=== PATIENT | male | born 1970 | race Caucasian/White ===

== ENCOUNTER → 2020-07-24 09:45 | Outpatient (BNV) | payer BC, OTHER, SELFPAY | PROVIDERS: PCP Internal Medicine; Visit Provider Internal Medicine Medical Oncology | DX: C83.30 Diffuse large B-cell lymphoma, unspecified site (principal) | CPT/HCPCS: 99213; 99214 ==

== ENCOUNTER 2020-08-06 08:17 | Outpatient (REF) | payer OTHER, SELFPAY ==
[2020-08-06 10:04] LABS: MANUAL DIFF FLAG NO
[2020-08-06 10:22] LABS: Basophils Percent Auto 0.4 % (0-2); Eosinophils Absolute Auto 0.1 X10*3/uL (0.0-0.4); Eosinophils Percent Auto 2.6 % (0-4); Hematocrit 43.2 % (42-52); Imm Gran Abs Auto 0.01 X10*3/uL (0.00-0.03); Imm Gran Pct Auto 0.2 % (0.0-0.4); Lymphocytes Absolute Auto 1.2 X10*3/uL (1.2-4.9); Lymphocytes Percent Auto 23.3 % (20-40); Mean Corpuscular HGB Conc 32.4 g/dl (31.0-36.0); Mean Corpuscular Hemoglobin 27.7 pg (27.0-33.0); Mean Corpuscular Volume 85.5 fL (80-98); Mean Platelet Volume 10.5 fL (9.4-12.4); Monocytes Absolute Auto 0.4 X10*3/uL (0.1-1.2); Monocytes Percent Auto 8.8 % (2-11); Neutrophils Absolute Auto 3.2 X10*3/uL (2.0-8.3); Neutrophils Percent Auto 64.7 % (45-73); Platelet Count 233 X10*3/uL (160-400); Red Blood Count 5.05 X10*6/uL (4.60-5.80); Red Cell Distribution Width 12.8 % (11.0-16.0)
[2020-08-06 10:29] LABS: Glucose Urine UA NEG (NEG); Leukocyte Esterase Urine NEG (NEG); Nitrite Urine NEG (NEG); Specific Gravity - Urine 1.025 (1.005-1.025); Urine Blood NEG (NEG); Urine Ketones NEG (NEG); Urine Protein NEG (NEG-TRACE)
[2020-08-06 10:31] LABS: Appearance Urine CLEAR; Color Urine YELLOW
[2020-08-06 10:50] LABS: Alanine Aminotransferase 22 U/L (0-40); Albumin Level 4.1 g/dL (3.5-5.0); Alkaline Phosphatase 68 U/L (39-117); Anion Gap 13 (12-20); Aspartate Amino Transferase 14 U/L (5-37); Bilirubin Total 0.8 mg/dL (0.0-1.0); Blood Urea Nitrogen 15 mg/dL (9-16); Calcium 8.8 mg/dL (8.4-10.2); Carbon Dioxide 26 mmol/L (22-29); Chloride 109 mmol/L (96-108); Cholesterol 179 mg/dL; Estimated Glomerular Filt Rate > 60; Glucose Fasting 81 mg/dL (60-99); HDL Cholesterol 40 mg/dL; LDL Cholesterol Calculated 126 mg/dl; Potassium 4.9 mmol/l (3.3-5.1); Sodium 143 mmol/L (135-145); Total Protein 6.5 g/dL (6.5-8.0); Triglycerides 65 mg/dL
[2020-08-06 11:12] LABS: Prostate Specific Antigen 0.47 ng/mL (<0.05-4.0)
== END 2020-08-06 08:18 | disposition home or self-care (01) ==
LOC: HO.LAB 08:17
PROVIDERS: PCP Internal Medicine; Visit Provider Internal Medicine
DX: Z00.00 Encounter for general adult medical examination without abnormal findings (principal); C83.32 Diffuse large B-cell lymphoma, intrathoracic lymph nodes
CPT/HCPCS: 36415; 80053; 80061; 81003; 84153; 85025

== ENCOUNTER 2021-06-28 10:23 | Emergency (ER) | payer BC, SELFPAY ==
[2021-06-28 10:49] VITALS: BP 136/97; PULSE 88; RESP 16; TEMP 36.1; O2SAT 98; BMI 28.2
--- NOTE | 2021-06-28 11:33 | ED.URI ---
HPI - URI/Sore Throat General Chief Complaint: Upper Respiratory Symptoms Stated Complaint: HEADACHE COUGH Time Seen by Provider: 06/28/21 11:10 Source: patient Mode of arrival: ambulatory Limitations: no limitations History of Present Illness HPI Narrative: 50-year-old male presents with 4 days of cough, fatigue, body aches, and gradual onset headache. Patient's has been sick, he lives with his grand children, both of whom have also been sick with the same symptoms. Patient's cough is dry, and is especially bothersome at night. He also has some nasal congestion and postnasal drip. His headache started gradually, and is located bilaterally and behind his eyes. Patient has been taking Tylenol which helps with the headache. No fevers, no stiff neck, no visual changes, no gait disturbance. No sore throat or ear pain. No vomiting or diarrhea. Patient is able to eat and drink. Patient was vaccinated for COVID in February MD elicited complaint: cough and nasal congestion Onset (ago): day(s) (4) Consistency: constant Severity: moderate Able to tolerate fluids by mouth: Yes Relieving factors: OTC cold medicine Context: sick contacts Associated symptoms: headache Related Data Home Medications Medication Instructions Recorded Confirmed omeprazole 20 mg capsule,delayed 20 mg PO DAILY 07/24/20 07/24/20 release Previous Rx's Medication Instructions Recorded albuterol sulfate 90 mcg/actuation 2 puff INHALATION Q4-6H 3 Days 06/28/21 aerosol inhaler #6.7 g benzonatate 200 mg capsule 200 mg PO TID 5 Days #15 cap 06/28/21 Allergies Allergy/AdvReac Type Severity Reaction Status Date / Time No Known Allergies Allergy Unverified 07/05/20 15:03 [No Known Allergies*] Review of Systems Constitutional: Constitutional: Reports body ache(s), Denies chills, Reports fatigue, Denies fever(s), Reports headache(s), Reports lethargy, Reports malaise and Denies weakness Eyes: Eyes: Denies blurry vision, Denies change in vision, Denies diplopia, Denies loss of vision and Denies eye pain ENT: Denies dizziness, Denies ear discharge, Denies otalgia, Reports headache(s), Denies hoarseness, Reports nasal congestion, Reports nasal discharge, Denies disequilibrium, Denies sinus pain, Denies sinus pressure and Denies sore throat Cardiovascular: Cardiovascular: Denies chest pain, Denies palpitations and Denies dyspnea Respiratory: Respiratory: Denies chest congestion, Reports cough, Denies dyspnea and Denies wheezing Gastrointestinal: Gastrointestinal: Denies abdominal pain, Denies diarrhea, Denies nausea and Denies vomiting Musculoskeletal: Musculoskeletal: Reports myalgias Integumentary/Breasts: Skin/Breast: Denies erythema and Denies rash Neurologic: Denies dizziness, Reports headache(s), Denies focal weakness, Denies loss of vision, Denies Sensory deficit (Neuro), Denies disequilibrium and Denies weakness Endocrine: Endocrine: Reports fatigue and Denies palpitations Allergic/Immunologic: Allergic/Immunologic: Denies wheezing PMFSH Past Medical History Medical History Chronic back pain DJD (degenerative joint disease), lumbar Family History Family History Mother Ovarian cancer Social History Social History Second Hand Smoke Exposure: No Advance Directives: Yes Advance Directives Information Provided: Yes Advance Directives on File: No Current occupational status: employed 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 Physical Exam Vital Signs: Vital Signs: Last Vital Signs Temp 97 F 06/28/21 10:49 Pulse 88 06/28/21 10:49 Resp 17 06/28/21 12:58 BP 136/97 H 06/28/21 10:49 Pulse Ox 98 06/28/21 10:49 Body Mass Index 28.2 Const: General: comfortable, no acute distress, well developed, alert and awake Nutritional Appearance: average body habitus Orientation/consciousness: patient oriented x3 Limitations: no limitations HENMT: Head: Yes normal to inspection, Yes normocephalic and Yes atraumatic Ears: hearing grossly normal bilaterally, external ears normal, TM's normal bilaterally and EAC's normal General nose exam: Normal external nose present, No nasal discharge present and Abnormal mucous membranes and turbinates present boggy bilateral Face and sinus: Yes normal facial exam and Yes sinuses nontender Mouth: Normal oral and palatal mucosa present, tongue normal, oropharynx normal and moist mucous membranes Throat: Yes postnasal drainage Eyes: Pupils: Equal, round and reactive pupils present EOM: EOMs intact bilaterally Neck: Neck: Yes full ROM, Yes no lymphadenopathy, Yes no meningeal signs, Yes trachea midline and Yes supple Resp: Effort & Inspection: normal respiratory effort and able to speak in complete sentences Auscultation: no crackles, no rales, no rhonchi, no wheezes and diminished lung sounds diffuse Cardio: Rate: regular rate Rhythm: regular rhythm Heart sounds: S1 normal heart sound present and S2 normal heart sound present Skin: General skin exam: no rashes or lesions noted and turgor normal Neuro: General: patient oriented x3, gait normal, tone normal, moves all extremities, no meningeal signs, no focal motor deficits and CN's II-XI intact bilaterally Cranial nerves: Yes Equal, round and reactive pupils present Sensory Exam: No Sensory deficit (Neuro) Course Course Course Narrative: 50-year-old with 4 days of dry cough, body aches, fatigue, and gradual onset headache with no red flags headache symptoms. Lungs mildly diminished, patient has postnasal drip in his posterior oropharynx. Otherwise unremarkable exam, will give ketorolac for headache, albuterol inhaler, will test for COVID and flu. Patient negative for COVID, flu, RSV, lungs are moving better air after albuterol inhaler, patient's headache has almost entirely resolved. Counseled patient to go home rest, push fluids, alternate Tylenol and ibuprofen,return to work Thursday. MDM - URI/Sore Throat Lab Data Labs: Lab Results 06/28/21 Range/Units 11:35 Coronavirus (PCR) NEGATIVE (Negative) Influenza Type A (PCR) NEGATIVE (Negative) Influenza Type B (PCR) NEGATIVE (Negative) RSV RNA Qual (PCR) NEGATIVE (Negative) Discharge Plan Discharge Clinical Impression: Upper respiratory infection Qualifiers: URI type: unspecified viral URI Qualified Code(s): J06.9 - Acute upper respiratory infection, unspecified Patient Disposition: Home, Self-Care Instructions: Upper Respiratory Infection (ED) Additional Instructions: Please push fluids, rest, alternate Tylenol and ibuprofen. Please use your albuterol inhaler 2 puffs every 4 hours for the next 3 days while you are awake. Please use the benzonatate as prescribed, they help with the dry cough. Please return to work on [employer]. Please return to the emergency room if you have worsening symptoms, fevers, or any new and concerning symptoms. Prescriptions: New albuterol sulfate 90 mcg/actuation HFA aerosol inhaler 2 puff inhalation Q4-6H 3 Days Qty: 6.7 RF: 0 benzonatate 200 mg capsule 200 mg PO TID 5 Days Qty: 15 RF: 0 No Action omeprazole [Prilosec] 20 mg Capsule,Delayed Release(Dr/Ec) 20 mg PO DAILY RF: 0 Stand Alone Forms: Work/School Release Interventions: ED Discharge Assessment Last Done: 06/28/21 13:02 Discharge Date/Time: 06/28/21 13:02
[2021-06-28] MEDS: Ketorolac Tromethamine 15 MG/ML VIAL 30 MG IM (11:43)
[2021-06-28] MEDS: Albuterol Sulfate 90 MCG 8 GM INHALER 2 PUFF INHALE (12:15)
[2021-06-28 12:42] LABS: Influenza A PCR NEGATIVE (Negative); Influenza B PCR NEGATIVE (Negative); Resp Syncy Virus RNA Qual PCR NEGATIVE (Negative); SARS COV2 PCR INHOUSE NEGATIVE (Negative)
[2021-06-28 12:58] VITALS: RESP 17
== END 2021-06-28 13:02 | disposition home or self-care (01) ==
PROVIDERS: Physician Assistant; Emergency Provider Emergency Medicine; PCP Internal Medicine
DX: J06.9 Acute upper respiratory infection, unspecified (principal); R51.9 Headache, unspecified; R05 Cough; M79.10 Myalgia, unspecified site; Z20.822 Contact with and (suspected) exposure to COVID-19; Z79.899 Other long term (current) drug therapy
CPT/HCPCS: 0241U; 36415; 94640; 96372; 99284; J1885

== ENCOUNTER 2021-08-12 10:19 | Outpatient (REF) | payer BC, SELFPAY ==
[2021-08-12 10:22] LABS: MANUAL DIFF FLAG NO
[2021-08-12 10:38] LABS: Basophils Percent Auto 0.2 % (0-2); Eosinophils Absolute Auto 0.1 X10*3/uL (0.0-0.4); Eosinophils Percent Auto 1.5 % (0-4); Hematocrit 43.8 % (42-52); Hemoglobin 14.2 g/dl (14.0-18.0); Imm Gran Abs Auto 0.01 X10*3/uL (0.00-0.03); Imm Gran Pct Auto 0.2 % (0.0-0.4); Lymphocytes Absolute Auto 1.7 X10*3/uL (1.2-4.9); Lymphocytes Percent Auto 28.4 % (20-40); Mean Corpuscular HGB Conc 32.4 g/dl (31.0-36.0); Mean Corpuscular Hemoglobin 27.4 pg (27.0-33.0); Mean Corpuscular Volume 84.6 fL (80-98); Mean Platelet Volume 10.5 fL (9.4-12.4); Monocytes Absolute Auto 0.5 X10*3/uL (0.1-1.2); Monocytes Percent Auto 8.1 % (2-11); Neutrophils Absolute Auto 3.6 X10*3/uL (2.0-8.3); Neutrophils Percent Auto 61.6 % (45-73); Platelet Count 230 X10*3/uL (160-400); Red Blood Count 5.18 X10*6/uL (4.60-5.80); White Blood Count 5.9 X10*3/uL (4.8-10.8)
[2021-08-12 10:49] LABS: Alanine Aminotransferase 22 U/L (0-40); Albumin Level 4.3 g/dL (3.5-5.0); Alkaline Phosphatase 73 U/L (39-117); Anion Gap 12 (12-20); Aspartate Amino Transferase 15 U/L (5-37); Bilirubin Total 1.1 mg/dL (0.0-1.0); Blood Urea Nitrogen 11 mg/dL (9-16); Calcium 9.1 mg/dL (8.4-10.2); Carbon Dioxide 26 mmol/L (22-29); Chloride 105 mmol/L (96-108); Cholesterol 210 mg/dL; Estimated Glomerular Filt Rate > 60; Glucose Fasting 83 mg/dL (60-99); HDL Cholesterol 41 mg/dL; LDL Cholesterol Calculated 155 mg/dl; Potassium 4.4 mmol/L (3.3-5.1); Sodium 139 mmol/L (135-145); Total Protein 6.7 g/dL (6.5-8.0); Triglycerides 74 mg/dL
[2021-08-12 10:59] LABS: Appearance Urine CLEAR; Color Urine YELLOW; Glucose Urine UA NEG (NEG); Leukocyte Esterase Urine NEG (NEG); Nitrite Urine NEG (NEG); Urine Blood NEG (NEG); Urine Ketones NEG (NEG); Urine Protein NEG (NEG-TRACE)
[2021-08-12 11:11] LABS: PSA,Total (Free>4and<10) 0.71 ng/mL (0.00-4.00)
== END 2021-08-12 10:20 | disposition home or self-care (01) ==
LOC: HO.LNP 10:19
PROVIDERS: Visit Provider Internal Medicine
DX: Z00.00 Encounter for general adult medical examination without abnormal findings (principal); C37 Malignant neoplasm of thymus; C83.32 Diffuse large B-cell lymphoma, intrathoracic lymph nodes
CPT/HCPCS: 80053; 80061; 81003; 84153; 85025

== ENCOUNTER 2022-08-14 11:56 | Outpatient (REF) | payer BC, SELFPAY ==
[2022-08-14 12:01] LABS: MANUAL DIFF FLAG NO
[2022-08-14 12:38] LABS: Basophils Percent Auto 0.4 % (0-2); Eosinophils Absolute Auto 0.1 X10*3/uL (0.0-0.4); Eosinophils Percent Auto 1.8 % (0-4); Hematocrit 47.8 % (42.0-52.0); Hemoglobin 15.2 g/dl (14.0-18.0); Imm Gran Abs Auto 0.01 X10*3/uL (0.00-0.03); Imm Gran Pct Auto 0.2 % (0.0-0.4); Lymphocytes Absolute Auto 1.5 X10*3/uL (1.2-4.9); Lymphocytes Percent Auto 27.2 % (20-40); Mean Corpuscular HGB Conc 31.8 g/dl (31.0-36.0); Mean Corpuscular Hemoglobin 27.1 pg (27.0-33.0); Mean Corpuscular Volume 85.4 fL (80.0-98.0); Mean Platelet Volume 10.6 fL (9.4-12.4); Monocytes Absolute Auto 0.5 X10*3/uL (0.1-1.2); Monocytes Percent Auto 8.9 % (2-11); Neutrophils Absolute Auto 3.3 x10*3/uL (2.0-8.3); Neutrophils Percent Auto 61.5 % (45-73); Platelet Count 213 X10*3/uL (160-400); Red Cell Distribution Width 13.3 % (11.0-16.0); White Blood Count 5.4 X10*3/uL (4.8-10.8)
[2022-08-14 12:39] LABS: Appearance Urine Clear; Color Urine Yellow; Glucose Urine UA Negative (Negative); Leukocyte Esterase Urine Negative (Negative); Nitrite Urine Negative (Negative); PH 7.5 (5.0-9.0); Urine Blood Negative (Negative); Urine Ketones Negative (Negative); Urine Protein Negative (Neg-Trace)
[2022-08-14 12:41] LABS: Bacteria Urine None Seen (None Seen); Hyaline Casts Urine 0-2 /LPF (0-2); RBC Urine 0-2 /HPF (0-2); Squamous Epithelial Cell Urine 0-2 /HPF (0-2); WBC Urine 0-5 /HPF (0-5)
[2022-08-14 12:48] LABS: Alanine Aminotransferase 21 U/L (0-40); Albumin Level 4.2 g/dL (3.5-5.0); Alkaline Phosphatase 81 U/L (39-117); Anion Gap 14 (12-20); Aspartate Amino Transferase 15 U/L (5-37); Bilirubin Total 0.7 mg/dL (0.0-1.0); Blood Urea Nitrogen 17 mg/dL (9-16); Calcium 9.1 mg/dL (8.4-10.2); Carbon Dioxide 28 mmol/L (22-29); Chloride 105 mmol/L (96-108); Cholesterol 236 mg/dL; Estimated Glomerular Filt Rate > 60; Glucose Fasting 95 mg/dL (60-99); HDL Cholesterol 48 mg/dL; LDL Cholesterol Calculated 172 mg/dl; Potassium 4.6 mmol/L (3.3-5.1); Sodium 142 mmol/L (135-145); Total Protein 6.8 g/dL (6.5-8.0); Triglycerides 81 mg/dL
[2022-08-14 13:10] LABS: PSA,Total (Free>4and<10) 0.56 ng/mL (0.00-4.00)
== END 2022-08-14 11:57 | disposition home or self-care (01) ==
LOC: HO.LNP 11:56
PROVIDERS: Visit Provider Internal Medicine
DX: Z00.00 Encounter for general adult medical examination without abnormal findings (principal); Z12.5 Encounter for screening for malignant neoplasm of prostate; C83.32 Diffuse large B-cell lymphoma, intrathoracic lymph nodes
CPT/HCPCS: 80053; 80061; 81001; 84153; 85025

== ENCOUNTER 2023-08-13 11:09 | Outpatient (REF) | payer BC, SELFPAY ==
[2023-08-13 11:13] LABS: MANUAL DIFF FLAG NO
[2023-08-13 11:28] LABS: Basophils Percent Auto 0.2 % (0-2); Eosinophils Absolute Auto 0.1 X10*3/uL (0.0-0.4); Eosinophils Percent Auto 2.3 % (0-4); Hematocrit 47.2 % (42.0-52.0); Hemoglobin 15.3 g/dl (14.0-18.0); Imm Gran Abs Auto 0.02 X10*3/uL (0.00-0.03); Imm Gran Pct Auto 0.3 % (0.0-0.4); Lymphocytes Absolute Auto 1.4 X10*3/uL (1.2-4.9); Lymphocytes Percent Auto 23.3 % (20-40); Mean Corpuscular HGB Conc 32.4 g/dl (31.0-36.0); Mean Corpuscular Hemoglobin 27.4 pg (27.0-33.0); Mean Corpuscular Volume 84.6 fL (80.0-98.0); Mean Platelet Volume 10.8 fL (9.4-12.4); Monocytes Absolute Auto 0.5 X10*3/uL (0.1-1.2); Monocytes Percent Auto 8.7 % (2-11); Neutrophils Percent Auto 65.2 % (45-73); Platelet Count 241 X10*3/uL (160-400); Red Blood Count 5.58 X10*6/uL (4.60-5.80); Red Cell Distribution Width 13.1 % (11.0-16.0); White Blood Count 6.1 X10*3/uL (4.8-10.8)
[2023-08-13 11:32] LABS: Appearance Urine Clear; Color Urine Yellow; Glucose Urine UA Negative (Negative); Leukocyte Esterase Urine Negative (Negative); Nitrite Urine Negative (Negative); PH 6.5 (5.0-9.0); Urine Blood Negative (Negative); Urine Ketones Negative (Negative); Urine Protein Negative (Neg-Trace)
[2023-08-13 11:36] LABS: Bacteria Urine None Seen (None Seen); Hyaline Casts Urine 0-2 /LPF (0-2); RBC Urine 0-2 /HPF (0-2); Squamous Epithelial Cell Urine 0-2 /HPF (0-2); WBC Urine 0-5 /HPF (0-5)
[2023-08-13 11:51] LABS: Alanine Aminotransferase 25 U/L (0-40); Alkaline Phosphatase 80 U/L (39-117); Anion Gap 11 (12-20); Aspartate Amino Transferase 13 U/L (5-37); Bilirubin Total 0.7 mg/dL (0.0-1.0); Blood Urea Nitrogen 13 mg/dL (9-16); Calcium 9.1 mg/dL (8.4-10.2); Carbon Dioxide 26 mmol/L (22-29); Chloride 108 mmol/L (96-108); Cholesterol 188 mg/dL (<200); Estimated Glomerular Filt Rate > 60; Glucose Fasting 95 mg/dL (60-99); HDL Cholesterol 37 mg/dL (>40); LDL Cholesterol Calculated 134 mg/dL (<100); Potassium 4.2 mmol/L (3.3-5.1); Sodium 141 mmol/L (135-145); Total Protein 6.9 g/dL (6.5-8.0); Triglycerides 86 mg/dL (<150)
[2023-08-13 12:07] LABS: PSA,Total (Free>4and<10) 0.72 ng/mL (0.00-4.00)
== END 2023-08-13 11:10 | disposition home or self-care (01) ==
LOC: HO.LNP 11:09
PROVIDERS: Visit Provider Internal Medicine
DX: Z00.00 Encounter for general adult medical examination without abnormal findings (principal); Z12.5 Encounter for screening for malignant neoplasm of prostate; C83.32 Diffuse large B-cell lymphoma, intrathoracic lymph nodes; E78.00 Pure hypercholesterolemia, unspecified
CPT/HCPCS: 80053; 80061; 81001; 84153; 85025

== ENCOUNTER → 2023-08-27 10:26 | Outpatient (REF) | payer BC, SELFPAY ==
--- NOTE | ~2023-08-27 | NM_ITS ---
EXAMINATION: NM BONE SCAN OF THE WHOLE BODY CLINICAL INFORMATION: History of B cell lymphoma. Lumbar pain. COMPARISON: No existing relevant imaging study available. TECHNIQUE: Multiple gamma scintillation camera images of the whole body were performed 3 hours following the intravenous administration of 35 mCi Tc-99m MDP. The radiotracer was injected through right antecubital superficial vein without complications. FINDINGS: In the head, unremarkable. In the thoracic cage and upper extremities, no suspicious focal abnormality. In the spine, mild upper thoracic levoscoliosis is present. In the pelvis, no suspicious focal lesion. In the lower extremities, mildly increased periarticular radiotracer activity seen bilaterally likely represent posttraumatic and/or arthritic changes. No other definite bony abnormalities are noted. The urinary bladder and faint visualization of both kidneys are noted. NM/NM bone scan whole body IMPRESSION: No suspicious focal osseous disease. Specifically, the etiology for back pain is not evident on these images. Alternative imaging modality including MRI of the lumbosacral spine as well as whole-body FDG PET CT scan especially given the history of lymphoma as clinically appropriate may be considered for further clarification.
== END ==
LOC: HO.NUCMED 10:26
PROVIDERS: PCP Internal Medicine; Visit Provider Internal Medicine
DX: C83.32 Diffuse large B-cell lymphoma, intrathoracic lymph nodes (principal); M54.50 Low back pain, unspecified
CPT/HCPCS: 78306; A9503

== ENCOUNTER 2024-02-06 03:54 | Emergency (ER) | payer BC, SELFPAY ==
--- NOTE | ~2024-02-06 | US_ITS ---
EXAMINATION: US VENOUS ULTRASOUND WITH DOPPLER LOWER EXTREMITY, LEFT CLINICAL INFORMATION: Pain COMPARISON: None available. TECHNIQUE: Ultrasound of the deep veins is performed from the hip to the calf with compression sonography and color and pulse Doppler assessment. Spectral analysis with color-flow imaging is performed. FINDINGS: There is normal venous compression and respiratory variation and augmented flow. The visualized common femoral vein, superficial femoral vein, profunda femoral vein, popliteal vein, and the trifurcation region shows no evidence of deep venous thrombosis. Peroneal vein was not visualized. There is no significant popliteal fossa cyst. There is a subcutaneous edema around the left ankle. If the patient's symptoms persist, followup ultrasound in 5 days 7 days might be of value to exclude proximal propagation from a non-visualized calf vein. US/US venous duplex LE LT IMPRESSION: 1. No DVT demonstrated in the left lower extremity. 2. There is subcutaneous edema around the left ankle. 3. Limitation of the study, peroneal vein was not visualized.
--- NOTE | ~2024-02-06 | CT_ITS ---
EXAMINATION: CT foot LT w IV con CLINICAL INFORMATION: Rule out osteomyelitis. COMPARISON: X-ray same day earlier. TECHNIQUE: TECHNIQUE: Noncontrast CT scan, department standard protocol. FINDINGS: Bones: There is no CT evidence of fracture. Bone alignments are satisfactory. There is no CT evidence of bone destruction to suggest osteomyelitis. Soft tissue swelling dorsal to the distal phalanx of the great toe does not seem to involve the cortex of the distal phalanx. Joints: Ankle joint is intact. Subtalar joint, intertarsal, tarsometatarsal joints and interphalangeal joints are intact. Surrounding soft tissue: As previously described there is extensive soft tissue swelling on the dorsal aspect of the great toe, no CT evidence of subcutaneous abscess CT/CT foot LT w IV con IMPRESSION: 1. Soft tissue swelling dorsal to the distal phalanx of the great toe, no CT evidence of subcutaneous abscess. 2. No CT evidence of osteomyelitis. There is high index of suspicion MRI could be utilized.
--- NOTE | ~2024-02-06 | XR_ITS ---
EXAMINATION: XR KNEE, LEFT CLINICAL INFORMATION: Pain COMPARISON: None available. TECHNIQUE: Four views of the left knee. FINDINGS: No fracture, there is a small knee joint effusion.. Alignment is anatomic. Joint spaces are maintained. No abnormal soft tissue calcification. XR/XR knee LT 4V IMPRESSION: No fracture or dislocation. There is knee joint effusion.
--- NOTE | ~2024-02-06 | XR_ITS ---
EXAMINATION: XR FOOT, LEFT CLINICAL INFORMATION: Infected great toenail COMPARISON: None available. TECHNIQUE: AP, lateral, and oblique views of the left foot. FINDINGS: Subtle radiolucency in the head of the distal phalanx great toe raise concern for possible early developing osteomyelitis. This can be confirmed by MRI if clinically indicated. There is soft tissue swelling. XR/XR foot LT min 3V IMPRESSION: 1. Subtle radiolucency in the head of the distal phalanx great toe raise concern for possible early developing osteomyelitis. This can be confirmed by MRI if clinically indicated. 2. Soft tissue swelling.
[2024-02-06 03:55] VITALS: BP 175/97; PULSE 85; RESP 18; TEMP 36.8; O2SAT 98; BMI 26.3
[2024-02-06 05:05] VITALS: BP 136/92; PULSE 78; RESP 17; O2SAT 98
--- NOTE | 2024-02-06 06:54 | PC.NURSE ---
Report to [facility] for continued care.
--- NOTE | 2024-02-06 07:05 | ED_ITS ---
HPI - Extremity Injury (Lower) General Chief Complaint: Extremity Injury, Lower Stated Complaint: L Leg pain/No Inj Time Seen by Provider: 02/06/24 06:35 Source: patient, RN notes reviewed and old records reviewed Mode of arrival: ambulatory Limitations: no limitations History of Present Illness HPI Narrative: 53 year old male with no significant pmhx presents to the ED today for evaluation of atraumatic left lower extremity pain x1 month. Admits pain extends from his left anterior left knee, down his posterior left lower leg. Endorses calf tenderness, exacerbated with bending his left knee. States that is is becoming increasingly more difficulty to walk due to the pain. Denies injury or trauma. Denies recent travel or long car rides. States that he has been wearing tight socks that come up to approximately calf height. He just recently purchased compression socks which he has been wearing for 1 week now. He endorses some improvement in discomfort with compression socks. No hx of VTE. Not on anticoagulation. Additionally endorses discoloration to his left great toe nail since September. Denies injury or trauma to the toe. Denies IVDU. Denies hx of diabetes. Denies fevers, chills, chest pain, cough, shortness of breath, dyspnea, wheezing, hemoptysis, myalgias. Related Data Home Medications ?Medication ?Instructions ?Recorded ?Confirmed omeprazole 20 mg capsule,delayed 20 mg PO DAILY 07/24/20 02/20/23 release Previous Rx's ?Medication ?Instructions ?Recorded terbinafine HCl 250 mg tablet 250 mg PO DAILY 4 weeks #28 tabs 02/06/24 Allergies Allergy/AdvReac Type Severity Reaction Status Date / Time No Known Allergies Allergy Verified 02/06/24 03:59 [No Known Allergies*] Review of Systems 2 Review of Systems: Constitutional: No fever, chills, fatigue, night sweats, weight changes ENT/Mouth: No ear pain, hearing loss, nasal congestion, sinus pain, rhinorrhea, sore throat Eyes: No eye pain, swelling, redness, vision changes, discharge Cardio: No chest pain, palpitations, [place], orthopnea, peripheral edema Pulm: No SOB, cough, sputum, wheezing, dyspnea, hemoptysis GI: No nausea, vomiting, hematemesis, abdominal pain, diarrhea, constipation, hematochezia, melena : No irregular bleeding, dysuria, frequency, urgency, hesitancy, hematuria, flank pain, urinary flow changes, urinary incontinence or retention MSK: No back pain, neck pain, joint pain, myalgias, + left lower leg pain Skin: No lesions, rashes Neuro: No weakness, numbness, paresthesias, LOC, dizziness, headache Psych: No anxiety/panic, depression, SI/HI, AH/VH All other systems reviewed and are negative. [facility] Past Medical History Attestation statement: The following information was validated with the patient. Source: old records reviewed and nursing notes reviewed Medical History DJD (degenerative joint disease), lumbar Chronic back pain Family History Family History Mother Ovarian cancer Social History Social History Household Members: Significant Other and Children Housing: Apartment Are you a primary career services coordinator to a significant other at home: No Do you presently have visiting nurse or other home services: No Patient Tobacco Use Status: Never used Tobacco Smoked in Last 30 Days: No Second Hand Smoke Exposure: No Use of substances other than those prescribed or required for medical reasons: No Advance Directives: No Advance Directives Information Provided: Yes service: No Current occupational status: employed 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 Physical Exam 2 Vital Signs: Vital Signs: Last Vital Signs Temp 98.4 F 02/06/24 12:34 Pulse 71 02/06/24 12:34 Resp 16 02/06/24 12:34 BP 135/70 02/06/24 12:34 Pulse Ox 99 02/06/24 12:34 O2 Del Method Room Air 02/06/24 12:34 BMI result Body Mass Index 26.3 Vital signs stable, afebrile. Slightly hypertensive Const: General: cooperative, healthy appearing, comfortable and no acute distress Orientation/consciousness: patient oriented x3 Limitations: no limitations HEENT: Head: Yes normal to inspection, Yes No palpable skull fracture present, Yes normocephalic and Yes atraumatic Eyes: General: appearance normal, both eyes and all related structures C onjunctivae: conjunctivae normal Sclerae: sclerae normal Pupils: Equal, round and reactive pupils present Neck: Neck: Yes normal visual inspection, Yes full ROM, Yes no lymphadenopathy and Yes no JVD Resp: Effort & Inspection: normal respiratory effort and able to speak in complete sentences Auscultation: clear to auscultation bilaterally and no crackles Cardio: Jugular venous distension: no JVD Rate: regular rate Rhythm: r egular rhythm Skin: General skin exam: no rashes or lesions noted Neuro: General: patient oriented x3, gait normal and tone normal Cranial nerves: Yes Equal, round and reactive pupils present Extrem: Other: + no pitting edema of the left lower ext remity. No overlying skin changes or obvious deformity. Full ROM to left hip, knee, ankle, toes intact. Strength intact. Calf pain elicited with flexion of left knee. No tenderness to palpation of left calf. 2+ PT/DP pulses. Ambulating with steady gait. + brown discoloration to left great toen ail. no extending erythema or warmth to left great toe. full rom intact to toe. Course Course Course Narrative: 931-- CBC without leukocytosis or left shift. No anemia. H&H stable. Chemistry without acute electrolyte abnormality requiring intervention. BNP WNL at 12 > unlikely CHF. X-ray of left knee does not demonstrate acute fracture or dislocation however does show a small knee joint effusion. X-ray of left foot demonstrates soft tis CT left foot does not show evidence of osteomyelitis evelia swelling along with subtle radiolucency at the head of the distal phalanx of great toe raising concern for possible early developing osteomyelitis > CT ordered for further evaluation. Venous duplex does not demonstrate DVT within the left lower extremity. There is subcutaneous edema around the left ankle, correlating with x-ray findings. 1220-- CTA of left foot does not show evidence of osteomyelitis. Recommending MRI if high clinical suspicion for infection. Presentation consistent with onychomycosis. Low suspicion for osteo at this time. discussed work up results with patient. Terbinafine sent to pharmacy for suspected fungal infection of left great toe. advised patient to continue wearing compression socks and to elevated LEs to help with swelling. Patient has remained stable throughout ED visit today. Discussed worrisome signs and symptoms and when to return to the ED. All questions answered at this time. Patient is agreeable with disposition and stable for discharge. Medications Administered Discontinued Medications Generic Name Dose Route Start Last Admin Trade Name Shai PRN Reason Stop Dose Admin Iohexol 85 ml 02/06/24 10:27 02/06/24 10:38 Iohexol 350 Mg/Ml 100 Ml Infus..Btl IV 02/06/24 10:28 85 ml ONCE ONE Administration Ketorolac Tromethamine 30 mg 02/06/24 07:36 02/06/24 07:40 Ketorolac Tromethamine 30 Mg/Ml Vial IM 02/06/24 07:37 30 mg ONCE ONE Administration Medical Decision Making Medical Decision Making [facility] Narrative: 53 year old male with no significant pmhx presents to the ED today for evaluation of atraumatic left lower extremity pain x1 month. Vital signs stable. Slightly hypertensive to 156/88. Afebrile. Nontoxic appearing and in no acute distress. On exam, no pitting edema of the left lower extremity. No overlying skin changes or obvious deformity. Full ROM to left hip, knee, ankle, toes intact. Strength intact. Calf pain elicited with flexion of left knee. No tenderness to palpation of left calf. 2+ PT/DP pulses. Ambulating with steady gait. obvious fungal infection to left great toenail. no extending erythema or warmth to left great toe. Lungs are CTA bilaterally. No crackles. RRR. No JVD. Differential diagnosis includes monsalve cyst, DVT, contusion, ligament/tendon injury, fracture, onychomycosis, CHF, leg edema, venous insufficiency. Low suspicion for osteo, neurovascular compromise, compartment syndrome, threat to limb. Plan for labs, with duplex and x-rays. Differential Diagnosis Differential Diagnoses: The differential diagnosis associated with the presentation includes as above. Admission/Observation Not indicated Lab Data [facility] Lab Attestation statement: I reviewed the patient's lab results. As above 02/06/24 07:49 02/06/24 07:49 Labs: Lab Results 02/06/24 Range/Units 07:49 WBC 5.8 (4.8-10.8) X10*3/uL RBC 5.70 (4.60-5.80) X10*6/uL Hgb 15.5 (14.0-18.0) g/dl Hct 47.3 (42.0-52.0) % MCV 83.0 (80.0-98.0) fL MCH 27.2 (27.0-33.0) pg MCHC 32.8 (31.0-36.0) g/dl RDW 13.1 (11.0-16.0) % Plt Count 216 (160-400) X10*3/uL MPV 9.9 (9.4-12.4) fL Immature Gran % (Auto) 0.2 (0.0-0.4) % Neut % (Auto) 68.0 (45-73) % Lymph % (Auto) 22.4 (20-40) % [place] % (Auto) 7.5 (2-11) % Eos % (Auto) 1.6 (0-4) % Baso % (Auto) 0.3 (0-2) % Lymph # (Auto) 1.3 (1.2-4.9) X10*3/uL [place] # (Auto) 0.4 (0.1-1.2) X10*3/uL Eos # (Auto) 0.1 (0.0-0.4) X10*3/uL Baso # (Auto) 0.0 (0.0-0.2) X10*3/uL Abs Immat Gran (auto) 0.01 (0.00-0.03) X10*3/uL Absolute Neuts (auto) 3.9 (2.0-8.3) x10*3/uL Absolute Nucleated RBC 0.000 (0.0-0.012) X10*3/uL Nucleated RBC % (auto) 0.0 (0.0-0.2) /100WBC Sodium 140 (135-145) mmol/L Potassium 4.5 (3.3-5.1) mmol/L Chloride 107 (96-108) mmol/L Carbon Dioxide 28 (22-29) mmol/L Anion Gap 10 L (12-20) BUN 12 (9-16) mg/dL Creatinine 0.72 (0.5-1.4) mg/dL Estim Creat Clear Calc 136.3 Estimated GFR > 60 Random Glucose 94 (60-115) mg/dL Calcium 9.1 (8.4-10.2) mg/dL Magnesium 2.2 (1.6-2.6) mg/dL Total Bilirubin 0.7 (0.0-1.0) mg/dL AST 13 (5-37) U/L ALT 26 (0-40) U/L Alkaline Phosphatase 78 (39-117) U/L Total Creatine Kinase 94 (38-174) U/L B-Natriuretic Peptide 12 (<100) pg/mL Total Protein 6.9 (6.5-8.0) g/dL Albumin 4.0 (3.5-5.0) g/dL Independent Interpretation I performed an independent interpretation of an: Plain X-Ray and Ultrasound Interpretation: X-ray left foot without acute fracture, agree with radiologist's interpretation. Venous duplex of left lower extremity does not exhibit acute clot. Agree with radiologist's interpretation. CT scan of left foot without evidence of osteomyelitis, agree with radiologist's interpretation. Radiology Impression Discussion of test interpretation with radiology: I have reviewed the radiologist's reading. Radiologist Impression: EXAMINATION: XR FOOT, LEFT CLINICAL INFORMATION: Infected great toenail COMPARISON: None available. TECHNIQUE: AP, lateral, and oblique views of the left foot. FINDINGS: Subtle radiolucency in the head of the distal phalanx great toe raise concern for possible early developing osteomyelitis. This can be confirmed by MRI if clinically indicated. There is soft tissue swelling. XR/XR foot LT min 3V IMPRESSION: 1. Subtle radiolucency in the head of the distal phalanx great toe raise concern for possible early developing osteomyelitis. This can be confirmed by MRI if clinically indicated. 2. Soft tissue swelling. EXAMINATION: XR KNEE, LEFT CLINICAL INFORMATION: Pain COMPARISON: None available. TECHNIQUE: Four views of the left knee. FINDINGS: No fracture, there is a small knee joint effusion.. Alignment is anatomic. Joint spaces are maintained. No abnormal soft tissue calcification. XR/XR knee LT 4V IMPRESSION: No fracture or dislocation. There is knee joint effusion. EXAMINATION: US VENOUS ULTRASOUND WITH DOPPLER LOWER EXTREMITY, LEFT CLINICAL INFORMATION: Pain COMPARISON: None available. TECHNIQUE: Ultrasound of the deep veins is performed from the hip to the calf with compression sonography and color and pulse Doppler assessment. Spectral analysis with color-flow imaging is performed. FINDINGS: There is normal venous compression and respiratory variation and augmented flow. The visualized common femoral vein, superficial femoral vein, profunda femoral vein, popliteal vein, and the trifurcation region shows no evidence of deep venous thrombosis. Peroneal vein was not visualized. There is no significant popliteal fossa cyst. There is a subcutaneous edema around the left ankle. If the patient's symptoms persist, followup ultrasound in 5 days 7 days might be of value to exclude proximal propagation from a non-visualized calf vein. US/US venous duplex LE LT IMPRESSION: 1. No DVT demonstrated in the left lower extremity. 2. There is subcutaneous edema around the left ankle. 3. Limitation of the study, peroneal vein was not visualized. EXAMINATION: CT foot LT w IV con CLINICAL INFORMATION: Rule out osteomyelitis. COMPARISON: X-ray same day earlier. TECHNIQUE: TECHNIQUE: Noncontrast CT scan, department standard protocol. FINDINGS: Bones: There is no CT evidence of fracture. Bone alignments are satisfactory. There is no CT evidence of bone destruction to suggest osteomyelitis. Soft tissue swelling dorsal to the distal phalanx of the great toe does not seem to involve the cortex of the distal phalanx. Joints: Ankle joint is intact. Subtalar joint, intertarsal, tarsometatarsal joints and interphalangeal joints are intact. Surrounding soft tissue: As previously described there is extensive soft tissue swelling on the dorsal aspect of the great toe, no CT evidence of subcutaneous abscess CT/CT foot LT w IV con IMPRESSION: 1. Soft tissue swelling dorsal to the distal phalanx of the great toe, no CT evidence of subcutaneous abscess. 2. No CT evidence of osteomyelitis. There is high index of suspicion MRI could be utilized. External Record Review External record reviewed: Inpatient record Prescription Management I considered prescription management with: Other (Terbinafine) Social Determinants Patient?s care significantly limited by Social Determinants of Health including: Other Social Determinant of Health Critical Care Time Critical Care Time Critical Care Time: Yes Total Critical Care Time: 45 Attestation: Critical care time in the amount of 45 minutes has been provided to the patient in terms of direct patient care, frequent reevaluation, review and interpretation of medical data and results, and management of potentially life- threatening conditions. This is all outside of any medical procedures. Discharge Plan Discharge Clinical Impression: Onychomycosis of left great toe, Leg edema, left Patient Disposition: Home, Self-Care Additional Instructions: Your labs today are reassuring. The x-ray of your knee shows a small joint effusion without fracture or dislocation. The x-ray of your left foot showed question of infection within the bone. CT was then ordered. The CT of your left foot does not demonstrate infection within the bone. You likely have a fungal infection of your left great toenail. Treatment for this is with oral antifungals. Oral terbinafine has been sent to your pharmacy. Take this daily for the next 4 weeks. Please follow-up with your PCP regarding this medication. Additionally make sure you are wearing compression socks daily to help with any swelling within your legs. Elevate your legs above your heart your resting at home. Return with new or worsening symptoms. In the case of an emergency call 911. Prescriptions: New terbinafine HCl 250 mg tablet 250 mg PO DAILY 28 Days Qty: 28 0RF No Action omeprazole [Prilosec] 20 mg Capsule,Delayed Release(Dr/Ec) 20 mg PO DAILY Referrals: Santosh Lofton MD [Primary Care Provider] - Stand Alone Forms: Work/School Release Interventions: ED Discharge Assessment Last Done: 02/06/24 12:34 Discharge Date/Time: 02/06/24 12:35 Print Language: Mohawk
--- NOTE | 2024-02-06 07:12 | PC.NURSE ---
Pt coming from home, reports left lower leg pain and swelling X1.5 months from knee to ankle area. Pt reports increased pain with walking or bending his leg. Big toe nail on left foot noted to be black which pts also reports has been ongoing for approx 1 month. Swelling and slight redness noted to left leg. Pt alert and oriented, breathing even and unlabored, skin WNL. VSS. Pt reports pain 9/10.
[2024-02-06 07:29] VITALS: BP 156/88; PULSE 78; RESP 18; TEMP 36.6; O2SAT 100
[2024-02-06] MEDS: Ketorolac Tromethamine 30 MG/ML VIAL IM (07:40)
[2024-02-06 07:54] LABS: MANUAL DIFF FLAG NO
[2024-02-06 07:59] LABS: Basophils Percent Auto 0.3 % (0-2); Eosinophils Absolute Auto 0.1 X10*3/uL (0.0-0.4); Eosinophils Percent Auto 1.6 % (0-4); Hematocrit 47.3 % (42.0-52.0); Hemoglobin 15.5 g/dl (14.0-18.0); Imm Gran Abs Auto 0.01 X10*3/uL (0.00-0.03); Imm Gran Pct Auto 0.2 % (0.0-0.4); Lymphocytes Absolute Auto 1.3 X10*3/uL (1.2-4.9); Lymphocytes Percent Auto 22.4 % (20-40); Mean Corpuscular HGB Conc 32.8 g/dl (31.0-36.0); Mean Corpuscular Hemoglobin 27.2 pg (27.0-33.0); Mean Platelet Volume 9.9 fL (9.4-12.4); Monocytes Absolute Auto 0.4 X10*3/uL (0.1-1.2); Monocytes Percent Auto 7.5 % (2-11); Neutrophils Absolute Auto 3.9 x10*3/uL (2.0-8.3); Platelet Count 216 X10*3/uL (160-400); Red Cell Distribution Width 13.1 % (11.0-16.0); White Blood Count 5.8 X10*3/uL (4.8-10.8)
[2024-02-06 08:21] LABS: B Type Natriuretic Peptide 12 pg/mL (<100)
[2024-02-06 10:15] LABS: Anion Gap 10 (12-20); Bilirubin Total 0.7 mg/dL (0.0-1.0); Blood Urea Nitrogen 12 mg/dL (9-16); Calcium 9.1 mg/dL (8.4-10.2); Carbon Dioxide 28 mmol/L (22-29); Chloride 107 mmol/L (96-108); Creatinine Clr Calc Pharmacy 136.3; Estimated Glomerular Filt Rate > 60; Glucose Random 94 mg/dL (60-115); Magnesium 2.2 mg/dL (1.6-2.6); Potassium 4.5 mmol/L (3.3-5.1); Sodium 140 mmol/L (135-145)
[2024-02-06 10:16] LABS: Alanine Aminotransferase 26 U/L (0-40); Alkaline Phosphatase 78 U/L (39-117); Aspartate Amino Transferase 13 U/L (5-37)
[2024-02-06 10:35] LABS: Total Protein 6.9 g/dL (6.5-8.0)
[2024-02-06] MEDS: iohexoL 350 MG/ML 100 ML INFUS..BTL 85 ML IV (10:38)
[2024-02-06 11:30] VITALS: BP 145/80; PULSE 74; RESP 16; TEMP 36.2; O2SAT 98
[2024-02-06 12:34] VITALS: BP 135/70; PULSE 71; RESP 16; TEMP 36.9; O2SAT 99
== END 2024-02-06 12:35 | disposition home or self-care (01) ==
PROVIDERS: Physician Assistant Medical; Emergency Provider Emergency Medicine; PCP Internal Medicine
DX: B35.1 Tinea unguium (principal); R60.0 Localized edema; M25.462 Effusion, left knee; M79.662 Pain in left lower leg
CPT/HCPCS: 36415; 73564; 73630; 73701; 80053; 82550; 83735; 83880; 85025; 93971; 96372; 99284; J1885; Q9967

== ENCOUNTER 2024-10-25 10:59 | Outpatient (REF) | payer BC, SELFPAY ==
[2024-10-25 11:01] LABS: MANUAL DIFF FLAG NO
[2024-10-25 11:10] LABS: Basophils Percent Auto 0.5 % (0-2); Eosinophils Absolute Auto 0.1 X10*3/uL (0.0-0.4); Eosinophils Percent Auto 1.9 % (0-4); Hematocrit 49.7 % (42.0-52.0); Hemoglobin 16.2 g/dl (14.0-18.0); Imm Gran Abs Auto 0.01 X10*3/uL (0.00-0.03); Imm Gran Pct Auto 0.2 % (0.0-0.4); Lymphocytes Absolute Auto 1.4 X10*3/uL (1.2-4.9); Lymphocytes Percent Auto 24.9 % (20-40); Mean Corpuscular HGB Conc 32.6 g/dl (31.0-36.0); Mean Corpuscular Hemoglobin 27.3 pg (27.0-33.0); Mean Corpuscular Volume 83.8 fL (80.0-98.0); Mean Platelet Volume 10.5 fL (9.4-12.4); Monocytes Absolute Auto 0.6 X10*3/uL (0.1-1.2); Monocytes Percent Auto 9.8 % (2-11); Neutrophils Absolute Auto 3.6 x10*3/uL (2.0-8.3); Neutrophils Percent Auto 62.7 % (45-73); Platelet Count 211 X10*3/uL (160-400); Red Blood Count 5.93 X10*6/uL (4.60-5.80); Red Cell Distribution Width 13.2 % (11.0-16.0); White Blood Count 5.7 X10*3/uL (4.8-10.8)
[2024-10-25 11:11] LABS: Appearance Urine Clear; Color Urine Yellow; Glucose Urine UA Negative (Negative); Leukocyte Esterase Urine Negative (Negative); Nitrite Urine Negative (Negative); PH 6.5 (5.0-9.0); Specific Gravity - Urine >= 1.030 (1.005-1.025); Urine Blood Negative (Negative); Urine Ketones Negative (Negative); Urine Protein Negative (Neg-Trace)
[2024-10-25 11:15] LABS: Bacteria Urine None Seen (None Seen); Hyaline Casts Urine 0-2 /LPF (0-2); RBC Urine 0-2 /HPF (0-2); Squamous Epithelial Cell Urine 0-2 /HPF (0-2); WBC Urine 0-5 /HPF (0-5)
[2024-10-25 11:45] LABS: Alanine Aminotransferase 32 U/L (0-40); Albumin Level 4.2 g/dL (3.5-5.0); Alkaline Phosphatase 79 U/L (39-117); Anion Gap 9 (12-20); Aspartate Amino Transferase 21 U/L (5-37); Bilirubin Total 1.1 mg/dL (0.0-1.0); Blood Urea Nitrogen 10 mg/dL (9-16); Calcium 9.1 mg/dL (8.4-10.2); Carbon Dioxide 27 mmol/L (22-29); Chloride 109 mmol/L (96-108); Cholesterol 223 mg/dL (<200); Estimated Glomerular Filt Rate > 60; Glucose Fasting 82 mg/dL (60-99); HDL Cholesterol 44 mg/dL (>40); LDL Cholesterol Calculated 157 mg/dL (<100); Potassium 4.1 mmol/L (3.3-5.1); Sodium 141 mmol/L (135-145); Total Protein 7.2 g/dL (6.5-8.0); Triglycerides 111 mg/dL (<150)
[2024-10-25 12:00] LABS: PSA,Total (Free>4and<10) 0.65 ng/mL (0.00-4.00)
--- OUTSIDE RECORDS SUMMARY | 2024-10-25 12:22 | XMS_ITS ---
Author Organization Santosh Lofton MD Address [address] [place], [place] [id number] Care Team Providers Care Maritime Officer Name Role Phone Santosh Lofton Primary Care Provider RESULTS Component Value Reference Range Notes Complete Blood Count Auto Di ff (Not yet reviewed by provider) Interpretation: Performing Lab:[facility], [address] [place] [id number] Notes/Report: White Blood Count 5.7 4.8-10.8 X10*3/uL Red Blood Count 5.93 4.60-5.80 X10*6/uL Hemoglobin 16.2 14.0-18.0 g/dl Hematocrit 49.7 42.0-52.0 % Mean Corpuscular Volume 83.8 80.0-98.0 fL Mean Corpuscular Hemoglobin 27.3 27.0-33.0 pg Mean Corpuscular HGB Conc 32.6 31.0-36.0 g/dl Red Cell Distribution Width 13.2 11.0-16.0 % Platelet Count 211 160-400 X10*3/uL Mean Platelet Volume 10.5 9.4-12.4 fL Neutrophils Percent Auto 62.7 45-73 % Imm Gran Pct Auto 0.2 0.0-0.4 % Lymphocytes Percent Auto 24.9 20-40 % Monocytes Percent Auto 9.8 2-11 % Eosinophils Percent Auto 1.9 0-4 % Basophils Percent Auto 0.5 0-2 % NRBC Pct Auto 0.0 0.0-0.2 /100WBC Neutrophils Absolute Auto 3.6 2.0-8.3 x10*3/u L Imm Gran Abs Auto 0.01 0.00-0.03 X10*3/uL Lymphocytes Absolute Auto 1.4 1.2-4.9 X10*3/u L Monocytes Absolute Auto 0.6 0.1-1.2 X10*3/uL Eosinophils Absolute Auto 0.1 0.0-0.4 X10*3/u L Basophils Absolute Auto 0.0 0.0-0.2 X10*3/uL NRBC Abs Auto 0.000 0.0-0.012 X10*3/uL Comprehensive [place]. Panel Fa (Not yet reviewed by provider) Interpretation: Performing Lab:[address] [phone] Notes/Report: Sodium 141 135-145 mmol/L Potassium 4.1 3.3-5.1 mmol/L Chloride 109 96-108 mmol/L Carbon Dioxide 27 22-29 mmol/L Anion Gap 9 12-20 Blood Urea Nitrogen 10 9-16 mg/dL Creatinine 0.81 0.5-1.4 mg/dL Estimated Glomerular Filt Rate > 60 Chronic Kidney Disease: Estimated GFR < 60 mL/min/1.73m2 Severe Kidney Disease: Estimated GFR < 15 mL/min/1.73m2 Glucose Fasting 82 60-99 mg/dL Calcium 9.1 8.4-10.2 mg/dL Bilirubin Total 1.1 0.0-1.0 mg/dL Aspartate Amino Transferase 21 5-37 U/L Alanine Aminotransferase 32 0-40 U/L Total Protein 7.2 6.5-8.0 g/dL Albumin Level 4.2 3.5-5.0 g/dL Alkaline Phosphatase 79 39-117 U/L Lipid Panel (Not yet reviewe d by provider) Interpretation: Performing Lab:[address] [place] [phone] Notes/Report: Triglycerides 111 <150 mg/dL Desirable Triglyceride: less than 150 mg/dL Borderline High Triglyceride 150-199 mg/dL High Triglyceride: 200-499 mg/dL Very High Triglyceride: greater than or equal to 5OO mg/dL Cholesterol 223 <200 mg/dL Desirable Cholesterol: less than 200 mg/dL Borderline High Cholesterol: 200-239 mg/dL High Cholesterol: greater than 239 mg/dL LDL Cholesterol Calculated 157 <100 mg/dL Desirable LDL: less than 100 mg/dL Near Optimal/Above Optimal LDL: 110-129 mg/dL Borderline High LDL: 130-159 mg/dL High LDL: 160-189 mg/dL Very High LDL: greater than or equal to 190 mg/dL HDL Cholesterol 44 >40 mg/dL Desirable HDL: greater than 40 mg/dL Note: This HDL assay may give artificially low results in patients with liver disease. PSA,Total (Free>4and<10) (No t yet reviewed by provider) Interpretation: Performing Lab:[address] [phone] Notes/Report: PSA,Total (Free>4and<10) 0.65 0.00-4.00 ng/mL A Free PSA was not performed: The percentage of Free PSA can be used to enhance the differentiation of prostate cancer from benign prostatic disease in subjects whose PSA levels are between 4.0 and 10.0 ng/mL. For subjects whose PSA levels are below 4.0 or above 10.0 ng/mL, the risk of prostate cancer is determined on the basis of the PSA alone. Therefore the % Free PSA is recommended only for those subjects whose PSA levels are between 4.0 and 10.0 ng/mL. PSA methodology: [place] [employer] i Chemiluminescent Microparticle Immunoassay (CMIA) UA ClnCatch+Micro w/rflx Cul t (Not yet reviewed by provider) Interpretation: Performing Lab:[address] [phone] Notes/Report: Urine, Clean Catch Color Urine Yellow Appearance Urine Clear PH 6.5 5.0-9.0 Glucose Urine UA Negative Negative mg/dL Urine Blood Negative Negative Specific [place] - Urine >= 1.030 1.005-1.025 Urine Protein Negative Neg-Trace mg/dL Urine Ketones Negative Negative mg/dL Nitrite Urine Negative Negative Leukocyte Esterase Urine Negative Negative RBC Urine 0-2 0-2 /HPF WBC Urine 0-5 0-5 /HPF Squamous Epithelial Cell Urine 0-2 0-2 /HPF Bacteria Urine None Seen None Seen Hyaline Casts Urine 0-2 0-2 /LPF REASON FOR VISIT Annual labs Encounters Encounter Location Date Provider Diagnosis Santosh Lofton MD [address] [place], [place] [id number] 10/25/2024 Santosh Lofton Blood tests for rout ine general physical examination Z00.00 and Hypercholesterolemia E78.00 ASSESSMENTS Encounter Date Diagnosis Assessment Notes Treatment Notes Treatment Clinical Notes 10/25/2024 Blood tests for rout ine general physical examination (ICD-10 - Z00.00) 10/25/2024 Hypercholesterolemia (ICD-10 - E78.00) PLAN OF TREATMENT Pending Test Test Name Order Date Complete Blood Count Auto Diff 5 Comprehensive [place]. Panel Fast 5 Lipid Panel 10/25/2024 PSA,Total (Free>4and<10) 10/25/2024 UA ClnCatch+Micro w/rflx Cult 10/25/2024 Next Appt Details Provider Name:Santosh neves, 11/29/2024 10:00:00 AM, [address], [address], [place], [place], [id number],
--- OUTSIDE RECORDS SUMMARY | 2024-10-25 12:22 | XMS_ITS ---
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 Panel Fast 4 Lipid Panel 08/19/2024 PSA,Total (Free>4and<10) 08/19/2024 UA ClnCatch+Micro w/rflx Cult 08/19/2024 Next Appt Details Provider Name:Santosh neves, 11/29/2024 10:00:00 AM, [address] [place] [address], [address], [place], [place], [phone],
--- OUTSIDE RECORDS SUMMARY | 2024-10-25 12:22 | XMS_ITS ---
Author Organization Santosh Lofton MD Address [address] [place], [place] [id number] Care Team Providers Care Ruffler Name Role Phone Santosh Lofton Primary Care Provider ALLERGIES No Known Allergies REASON FOR VISIT annual viist, need to discuss booking Pet scan SOCIAL HISTORY Tobacco Use: Social History Observation Description Date Details (start date - stop date) Never Smoker NA - NA Sex Assigned At : Social History Observation Description Sex Assigned At Unknown Tobacco Use/Smoking Question Answer Notes Patient is a nonsmoker Additional Findings: Tobacco Non-User Cu rrent non-smoker, currently using no form of tobacco Alcohol Screen Question Answer Notes Did you have a drink containing alcohol in the p ast year? No Points 0 Interpretation Negative Encounters Encounter Location Date Provider Diagnosis Santosh Lofton MD [address] [place], [place] [phone] 08/26/2024 Santosh Lofton PLAN OF TREATMENT Next Appt Details Provider Name:Santosh neves, 11/29/2024 10:00:00 AM, [address], [address], [place], [place], [phone], History and Physical Notes * HPI (History of Present Illness) Category Sub-Category Detail Notes Depression Screening PHQ-9 Little inte rest or pleasure in doing things: Not at all Feeling down, depressed, or hopeless: No t at all Trouble falling or staying asleep, or sl eeping too much: Not at all Feeling tired or having little energy: N ot at all Poor appetite or overeating: Not at all Feeling bad about yourself o r that you are a failure, or have let yourself or your family down: Not at all Trouble concentrating on thi ngs, such as reading the newspaper or watching television: Not at all Moving or speaking so slowly that other people could have noticed; or the opposite, being so fidgety or restless that you have been moving around a lot more than usual: Not at all Thoughts that you would be b jonah off or of hurting yourself in some way: Not at all Total Score: 0 SDOH Questions SDOH Questions In the past year have you been worried about losing housing?: No In the past year have you or any family members you live with been unable to get any of the following when it was really needed? Check all that apply:: None Communication Needs Communication Needs Does the patient have a hearing impairment: No Does the patient have a vision impairmen t?: Yes ?If yes, what is the vision impairment?: Glasses Does the patient have a cognition impair ment?: No
--- OUTSIDE RECORDS SUMMARY | 2024-10-25 12:22 | XMS_ITS | Patient Health Record ---
Author Organization Santosh Lofton MD Address [address] [place], [place] [id number] Care Team Providers Care Preforms Laminator Name Role Phone Santosh Lofton Primary Care Provider [phone] ALLERGIES No Known Allergies RESULTS Component Value Reference Range Notes Complete Blood Count Auto Di ff Reviewed date:02/06/2024 05:44:32 PM Interpretation: Performing Lab:[facility], [address] [place] [phone] Notes/Report: White Blood Count 5.8 4.8-10.8 X10*3/uL Red Blood Count 5.70 4.60-5.80 X10*6/uL Hemoglobin 15.5 14.0-18.0 g/dl Hematocrit 47.3 42.0-52.0 % Mean Corpuscular Volume 83.0 80.0-98.0 fL Mean Corpuscular Hemoglobin 27.2 27.0-33.0 pg Mean Corpuscular HGB Conc 32.8 31.0-36.0 g/dl Red Cell Distribution Width 13.1 11.0-16.0 % Platelet Count 216 160-400 X10*3/uL Mean Platelet Volume 9.9 9.4-12.4 fL Neutrophils Percent Auto 68.0 45-73 % Imm Gran Pct Auto 0.2 0.0-0.4 % Lymphocytes Percent Auto 22.4 20-40 % Monocytes Percent Auto 7.5 2-11 % Eosinophils Percent Auto 1.6 0-4 % Basophils Percent Auto 0.3 0-2 % NRBC Pct Auto 0.0 0.0-0.2 /100WBC Neutrophils Absolute Auto 3.9 2.0-8.3 x10*3/u L Imm Gran Abs Auto 0.01 0.00-0.03 X10*3/uL Lymphocytes Absolute Auto 1.3 1.2-4.9 X10*3/u L Monocytes Absolute Auto 0.4 0.1-1.2 X10*3/uL Eosinophils Absolute Auto 0.1 0.0-0.4 X10*3/u L Basophils Absolute Auto 0.0 0.0-0.2 X10*3/uL NRBC Abs Auto 0.000 0.0-0.012 X10*3/uL Comprehensive Met. Panel Reviewed date:02/06/2024 05:44:01 PM Interpretation: Performing Lab:[facility], [address] [place] [phone] Notes/Report: Sodium 140 135-145 mmol/L Potassium 4.5 3.3-5.1 mmol/L Chloride 107 96-108 mmol/L Carbon Dioxide 28 22-29 mmol/L Anion Gap 10 12-20 Blood Urea Nitrogen 12 9-16 mg/dL Creatinine 0.72 0.5-1.4 mg/dL Creatinine Clr Calc Pharmacy 136.3 eGFR (calculated from the MDRD study equation) and eCrCl (calculated from the Cockcroft-Gault equation) are based on different parameters and may not yield comparable results. If eCrCl result is absurd, please check patient's height/weight. Estimated Glomerular Filt Rate > 60 NOTE: For -Romanian individuals, multiply the result by 1.210. Chronic Kidney Disease: Estimated GFR < 60 mL/min/1.73m2 Severe Kidney Disease: Estimated GFR < 15 mL/min/1.73m2 Glucose Random 94 60-115 mg/dL Calcium 9.1 8.4-10.2 mg/dL Bilirubin Total 0.7 0.0-1.0 mg/dL Aspartate Amino Transferase 13 5-37 U/L Alanine Aminotransferase 26 0-40 U/L Total Protein 6.9 6.5-8.0 g/dL Albumin Level 4.0 3.5-5.0 g/dL Alkaline Phosphatase 78 39-117 U/L Magnesium Reviewed date:02/06/2024 05:43:33 PM Interpretation: Performing Lab:[facility], [address] [place] [phone] Notes/Report: Magnesium 2.2 1.6-2.6 mg/dL Creatine Kinase Total Reviewed date:02/06/2024 05:43:43 PM Interpretation: Performing Lab:[facility], [address] [place] [phone] Notes/Report: Creatine Kinase Total 94 38-174 U/L B Type Natriuretic Peptide Reviewed date:02/06/2024 05:44:10 PM Interpretation: Performing Lab:[facility], [address] [place] [phone] Notes/Report: B Type Natriuretic Peptide 12 <100 pg/mL For those patients who are being treated with Natrecor (nesiritide, recombinant BNP), BNP testing should be performed at least two hours post treatment in order to ensure that only endogenous levels of BNP are detected. CT foot LT w con Reviewed date:02/06/2024 05:37:32 PM Interpretation: Performing Lab: Notes/Report: [address] [place] [address] CT Scan Report Signed Patient: Jerry Boswell MR#: [id number] 0599 : 1970 Acct:[id number] Age/Sex: 53 / M ADM Date: 02/06/24 Loc: HO.ED Attending Dr: Ordering Physician: Anita Mariscal Date of Service: 02/06/24 Procedure(s): CT foot LT w IV con Accession Number(s): [id number] cc: Santosh Lofton MD; Anita Mariscal EXAMINATION: CT foot LT w IV con CLINICAL INFORMATION: Rule out osteomyelitis. COMPARISON: X-ray same day earlier. TECHNIQUE: TECHNIQUE: Noncontrast CT scan, department standard protocol. FINDINGS: Bones: There is no CT evidence of fracture. Bone alignments are satisfactory. There is no CT evidence of bone destruction to suggest osteomyelitis. Soft tissue swelling dorsal to the distal phalanx of the great toe does not seem to involve the cortex of the distal phalanx. Joints: Ankle joint is intact. Subtalar joint, intertarsal, tarsometatarsal joints and interphalangeal joints are intact. Surrounding soft tissue: As previously described there is extensive soft tissue swelling on the dorsal aspect of the great toe, no CT evidence of subcutaneous abscess CT/CT foot LT w IV con IMPRESSION: 1. Soft tissue swelling dorsal to the distal phalanx of the great toe, no CT evidence of subcutaneous abscess. 2. No CT evidence of osteomyelitis. There is high index of suspicion MRI could be utilized. Dictated By: Mamie Dawn MD Signed By: <Electronically signed by Mamie Dawn MD in OV> 02/06/24 1156 DD/ 1028 TD/TT: Accounting Practice Manager: US venous duplex [facility] Reviewed date:02/06/2024 05:38:25 PM Interpretation: Performing Lab: Notes/Report: [address] [address] Ultrasound Report Signed Patient: Jerry Boswell MR#: [id number] 0599 : 1970 Acct:[id number] Age/Sex: 53 / M ADM Date: 02/06/24 Loc: HO.ED Attending Dr: Ordering Physician: Anita Mariscal Date of Service: 02/06/24 Procedure(s): US venous duplex [facility] Accession Number(s): [id number] cc: Santosh Lofton MD; Anita Mariscal EXAMINATION: US VENOUS ULTRASOUND WITH DOPPLER LOWER EXTREMITY, LEFT CLINICAL INFORMATION: Pain COMPARISON: None available. TECHNIQUE: Ultrasound of the deep veins is performed from the hip to the calf with compression sonography and color and pulse Doppler assessment. Spectral analysis with color-flow imaging is performed. FINDINGS: There is normal venous compression and respiratory variation and augmented flow. The visualized common femoral vein, superficial femoral vein, profunda femoral vein, popliteal vein, and the trifurcation region shows no evidence of deep venous thrombosis. Peroneal vein was not visualized. There is no significant popliteal fossa cyst. There is a subcutaneous edema around the left ankle. If the patient's symptoms persist, followup ultrasound in 5 days 7 days might be of value to exclude proximal propagation from a non-visualized calf vein. US/US venous duplex LE LT IMPRESSION: 1. No DVT demonstrated in the left lower extremity. 2. There is subcutaneous edema around the left ankle. 3. Limitation of the study, peroneal vein was not visualized. Dictated By: Mamie Dawn MD Signed By: <Electronically signed by Mamie Dawn MD in OV> 02/06/24 0836 DD/ 0821 TD/TT: Accounting Practice Manager: CHEPE XR knee LT 4V Reviewed date:02/06/2024 05:43:12 PM Interpretation: Performing Lab: Notes/Report: [address] [address] XRay Report Signed Patient: Jerry Boswell MR#: [id number] 0599 : 1970 Acct:[id number] Age/Sex: 53 / M ADM Date: 02/06/24 Loc: HO.ED Attending Dr: Ordering Physician: Anita Mariscal Date of Service: 02/06/24 Procedure(s): XR knee LT 4V Accession Number(s): [id number] cc: Santosh Lofton MD; Anita Mariscal EXAMINATION: XR KNEE, LEFT CLINICAL INFORMATION: Pain COMPARISON: None available. TECHNIQUE: Four views of the left knee. FINDINGS: No fracture, there is a small knee joint effusion.. Alignment is anatomic. Joint spaces are maintained. No abnormal soft tissue calcification. XR/XR knee LT 4V IMPRESSION: No fracture or dislocation. There is knee joint effusion. Dictated By: Mamie Dawn MD Signed By: <Electronically signed by Mamie Dawn MD in OV> 02/06/24 0755 DD/ 0739 TD/TT: Accounting Practice Manager: HS XR foot LT min 3V Reviewed date:02/06/2024 05:42:46 PM Interpretation: Performing Lab: Notes/Report: [address] [address] XRay Report Signed Patient: Jerry Boswell MR#: [id number] 0599 : 1970 Acct:[id number] Age/Sex: 53 / M ADM Date: 02/06/24 Loc: HO.ED Attending Dr: Ordering Physician: Anita Mariscal Date of Service: 02/06/24 Procedure(s): XR foot LT min 3V Accession Number(s): [id number] cc: Santosh Lofton MD; Anita Mariscal EXAMINATION: XR FOOT, LEFT CLINICAL INFORMATION: Infected great toenail COMPARISON: None available. TECHNIQUE: AP, lateral, and oblique views of the left foot. FINDINGS: Subtle radiolucency in the head of the distal phalanx great toe raise concern for possible early developing osteomyelitis. This can be confirmed by MRI if clinically indicated. There is soft tissue swelling. XR/XR foot LT min 3V IMPRESSION: 1. Subtle radiolucency in the head of the distal phalanx great toe raise concern for possible early developing osteomyelitis. This can be confirmed by MRI if clinically indicated. 2. Soft tissue swelling. Dictated By: Mamie Dawn MD Signed By: <Electronically signed by Mamie Dawn MD in OV> 02/06/24 0757 DD/ 0739 TD/TT: Accounting Practice Manager: HS Complete Blood Count Auto Di ff Reviewed date:02/25/2024 02:57:49 PM Interpretation: Performing Lab:[facility], [address] [place] [phone] Notes/Report: White Blood Count 5.9 4.8-10.8 X10*3/uL Red Blood Count 5.36 4.60-5.80 X10*6/uL Hemoglobin 14.8 14.0-18.0 g/dl Hematocrit 44.8 42.0-52.0 % Mean Corpuscular Volume 83.6 80.0-98.0 fL Mean Corpuscular Hemoglobin 27.6 27.0-33.0 pg Mean Corpuscular HGB Conc 33.0 31.0-36.0 g/dl Red Cell Distribution Width 13.2 11.0-16.0 % Platelet Count 219 160-400 X10*3/uL Mean Platelet Volume 10.1 9.4-12.4 fL Neutrophils Percent Auto 67.0 45-73 % Imm Gran Pct Auto 0.2 0.0-0.4 % Lymphocytes Percent Auto 21.8 20-40 % Monocytes Percent Auto 9.0 2-11 % Eosinophils Percent Auto 1.7 0-4 % Basophils Percent Auto 0.3 0-2 % NRBC Pct Auto 0.0 0.0-0.2 /100WBC Neutrophils Absolute Auto 4.0 2.0-8.3 x10*3/u L Imm Gran Abs Auto 0.01 0.00-0.03 X10*3/uL Lymphocytes Absolute Auto 1.3 1.2-4.9 X10*3/u L Monocytes Absolute Auto 0.5 0.1-1.2 X10*3/uL Eosinophils Absolute Auto 0.1 0.0-0.4 X10*3/u L Basophils Absolute Auto 0.0 0.0-0.2 X10*3/uL NRBC Abs Auto 0.000 0.0-0.012 X10*3/uL Comprehensive Met. Panel Reviewed date:02/25/2024 07:13:25 PM Interpretation: Performing Lab:[facility], [address] [place] [phone] Notes/Report: Sodium 144 135-145 mmol/L Potassium 4.3 3.3-5.1 mmol/L Chloride 108 96-108 mmol/L Carbon Dioxide 25 22-29 mmol/L Anion Gap 15 12-20 Blood Urea Nitrogen 18 9-16 mg/dL Creatinine 0.81 0.5-1.4 mg/dL Creatinine Clr Calc Pharmacy 140.6 eGFR (calculated from the MDRD study equation) and eCrCl (calculated from the Cockcroft-Gault equation) are based on different parameters and may not yield comparable results. If eCrCl result is absurd, please check patient's height/weight. Estimated Glomerular Filt Rate > 60 NOTE: For -Romanian individuals, multiply the result by 1.210. Chronic Kidney Disease: Estimated GFR < 60 mL/min/1.73m2 Severe Kidney Disease: Estimated GFR < 15 mL/min/1.73m2 Glucose Random 92 60-115 mg/dL Calcium 9.3 8.4-10.2 mg/dL Bilirubin Total 0.6 0.0-1.0 mg/dL Aspartate Amino Transferase 13 5-37 U/L Alanine Aminotransferase 26 0-40 U/L Total Protein 7.1 6.5-8.0 g/dL Albumin Level 4.1 3.5-5.0 g/dL Alkaline Phosphatase 79 39-117 U/L Lactate Dehydrogenase Reviewed date:02/25/2024 12:37:53 PM Interpretation: Performing Lab:[facility], [address] [place] [phone] Notes/Report: Lactate Dehydrogenase 196 118-273 U/L Hold Gold Reviewed date:02/25/2024 12:37:45 PM Interpretation: Performing Lab:[facility], [address] [place] [phone] Notes/Report: Corrine Hollis See Note Specimen held untested for 24 hours; Call to request Chemistry testing. Complete Blood Count Auto Di ff (Not yet reviewed by provider) Interpretation: Performing Lab:[facility], [address] [place] [phone] Notes/Report: White Blood Count 5.7 4.8-10.8 X10*3/uL [...] NRBC Abs Auto 0.000 0.0-0.012 X10*3/uL Comprehensive [place]. Panel Fa (Not yet reviewed by provider) Interpretation: Performing Lab:[address] [phone] Notes/Report: Sodium 141 135-145 mmol/L Potassium 4.1 [...] yet reviewe d by provider) Interpretation: Performing Lab:[address] [phone] Notes/Report: Triglycerides 111 <150 mg/dL Desirable Triglyceride: [...] t yet reviewed by provider) Interpretation: Performing Lab:[address] [phone] Notes/Report: PSA,Total (Free>4and<10) 0.65 0.00-4.00 ng/mL A [...] (Not yet reviewed by provider) Interpretation: Performing Lab:[address] [phone] Notes/Report: Urine, Clean Catch Color Urine Yellow Appearance Urine Clear PH 6.5 5.0-9.0 Glucose Urine UA Negative Negative mg/dL Urine Blood Negative Negative Specific [place] - Urine >= 1.030 1.005-1.025 Urine Protein Negative Neg-Trace mg/dL Urine Ketones Negative Negative mg/dL Nitrite Urine Negative Negative Leukocyte Esterase Urine Negative Negative RBC Urine 0-2 0-2 /HPF WBC Urine 0-5 0-5 /HPF Squamous Epithelial Cell Urine 0-2 0-2 /HPF Bacteria Urine None Seen None Seen Hyaline Casts Urine 0-2 0-2 /LPF REASON FOR REFERRAL No Information MEDICATIONS Medication SIG (Take, Route, Frequency, Duration) Notes Start Date End Date Status Omeprazole 20 MG 1 capsule Orally Onc e a day 07/06/2017 Active Albuterol Sulfate HFA 108 (90 Base) MCG/ACT 1 puff as needed Inhalation every 4 hrs Not-Takin g Naproxen 500 MG TAKE ONE TABLET BY MOUTH EVERY 12 HOURS NEEDED FOR PAIN FOR 5 DAYS Oral for 5 Not-Taking Tylenol 325 MG 2 tablets as needed Orally every 6 hrs Not-Taking Terbinafine HCl 250 MG 1 tablet Orally O nce a day for 10 day(s) Active Zofran 4 MG tablets Orally 2-3 times a day Not-Taking IMMUNIZATIONS Vaccine Route Administration Date Status Comme nts Fluarix Quadrivalent IM Intramuscular 06/29/2017 Administe red Fluarix Quadrivalent IM Intramuscular 07/06/2018 Administe red Fluarix Quadrivalent IM Intramuscular 07/04/2019 Administe red Fluarix Quadrivalent IM Intramuscular 08/16/2020 Administe red Fluarix Quadrivalent IM Intramuscular 08/12/2021 Administe red SARS-COV-2 Pfizer Unknown 02/15/2021 Administered SARS-COV-2 Pfizer Unknown 03/08/2021 Administered Fluarix Quadrivalent IM Intramuscular 08/14/2022 Administe red Fluarix Quadrivalent Unknown 07/14/2016 Refused PPSV23 (Pnemovax) Unknown 01/10/2019 Refused Shingrix Unknown 08/13/2020 Refused SOCIAL HISTORY Tobacco Use: Social History Observation Description Date Details (start date - stop date) Never Smoker NA - NA Sex Assigned At : Social History Observation Description Sex Assigned At Unknown Tobacco Use/Smoking Question Answer Notes Patient is a nonsmoker Additional Findings: Tobacco Non-User Cu rrent non-smoker, currently using no form of tobacco PROBLEMS Problem Type ICD Code Onset Dates Problem Status W/U Status Risk SNOMED Code Notes Problem Lumbar disc disease (M51.9) Active confirmed 50736293 Problem Chest mass (R22.2) Active confirmed 440 092067 Problem Malignant thymoma (C37) Active confirmed 067216950 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 546362626 Problem Hypercholesterolemia (E78.00) Active confirmed 30583952 Problem Gastroesophageal ref lux disease with esophagitis without hemorrhage (K21.00) Active confirmed 810555329 VITAL SIGNS Blood pressure diastolic 88 mm Hg 02/23/2024 Height 74 in 02/23/2024 Blood pressure systolic 132 mm Hg 02/23/2024 Weight 254 lbs 02/23/2024 BMI 32.61 kg/m2 02/23/2024 Encounters Encounter Location Date Provider Diagnosis Santosh Lofton MD [address] [place] [id number] 08/26/2024 Santosh Lofton MD [address] [place] [id number] 08/19/2024 Santosh Lofton Blood tests for rout ine general physical examination Z00.00 ; Hypercholesterolemia E78.00 and Diffuse large B-cell lymphoma of intrathoracic lymph nodes C83.32 Santosh Lofton MD [address] [id number] 10/25/2024 Santosh Lofton Blood tests for rout ine general physical examination Z00.00 and Hypercholesterolemia E78.00 Santosh Lofton MD [address] [place] [id number] 02/12/2024 Santosh Lofton Lumbar disc disease with radiculopathy M51.16 Santosh Lofton MD [address] [id number] 02/23/2024 Santosh Lofton Lumbar disc disease M51.9 and Pain in left knee M25.562 Santosh Lofton MD [address] [id number] 02/04/2024 Santosh Lofton MD [address] [id number] 02/08/2024 Santosh Lofton MD [address] [place] [id number] 02/29/2024 Santosh Lofton Pain of left calf M7 9.662 Santosh Lofton MD [address] [place] [id number] 04/01/2024 Santosh Lofton ASSESSMENTS Encounter Date Diagnosis Assessment Notes Treatment Notes Treatment Clinical Notes 08/19/2024 [address] tests for rout ine general physical examination (ICD-10 - Z00.00) 10/25/2024 Hypercholesterolemia (ICD-10 - E78.00) 10/25/2024 Blood tests for rout ine general physical examination (ICD-10 - Z00.00) 02/12/2024 Lumbar disc disease with radiculopathy (ICD-10 - M51.16) dosn't appear to be any venous disease as us was negative and was done months after the complaint. seems most likely referred from spine. THE ORDERS HAVE BEEN FAXED TO [facility] WITH RECENT LABWORK. PATIENT AWARE THAT [facility] WILL CALL HIM TO SCHEDULE. pending diagnostic testing 02/23/2024 Pain in left knee (I CD-10 - M25.562) xray was negative. is getting better so will observe 02/23/2024 Lumbar disc disease (ICD-10 - M51.9) does not appear to be the cause of the problem 08/19/2024 Hypercholesterolemia (ICD-10 - E78.00) 02/29/2024 Pain of left calf (I CD-10 - M79.662) 08/19/2024 Diffuse large B-cell lymphoma of intrathoracic lymph nodes (ICD-10 - C83.32) PLAN OF TREATMENT Pending Test Test Name Order Date NUC WHOLE BODY SCAN BONE 08/21/[address] SKULL TO THIGHRS 09/07/2023 XR GI SERIES 08/16/2021 US LEG LT VENOUS DOPPLER 02/29/2024 US LEG LT VENOUS DOPPLER 02/12/2024 Complete Blood Count Auto Diff 5 Complete Blood Count Auto Diff 4 Comprehensive [place]. Panel Fast 5 Comprehensive [place]. Panel Fast 4 Lipid Panel 10/25/2024 Lipid Panel 08/19/2024 PSA,Total (Free>4and<10) 10/25/2024 PSA,Total (Free>4and<10) 08/19/2024 CT lumbar spine wo/w con 02/12/2024 UA ClnCatch+Micro w/rflx Cult 10/25/2024 UA ClnCatch+Micro w/rflx Cult 08/19/2024 Next Appt Details Provider Name:Santosh neves, 11/29/2024 10:00:00 AM, [address] [facility], [address], [place], [place], [phone], Insurance Providers Payer Name Payer Address Payer Phone Subscriber Number Group Number Insured Name Patient Relationship to Insured Coverage Start Date Coverage End Date [employer] [address] [place], [place] [phone] [id number] Jerry Gore Self - patient is the insured MEDICAL (GENERAL) HISTORY Medical History History ICD Code 08/27/2017 - Endo by Dr. Mcgee Colonoscopy done 12/30/[address] Mcgee - repeat in 5 years lung nodule stableand small needs no fur ther follow up Lung nodule R91.1
== END 2024-10-25 11:00 | disposition home or self-care (01) ==
LOC: HO.LNP 10:59
PROVIDERS: Visit Provider Internal Medicine
DX: Z00.00 Encounter for general adult medical examination without abnormal findings (principal); E78.00 Pure hypercholesterolemia, unspecified; Z12.5 Encounter for screening for malignant neoplasm of prostate
CPT/HCPCS: 80053; 80061; 81001; 84153; 85025